=== PATIENT | female | born 2000 | race Caucasian/White ===

== ENCOUNTER 2024-05-21 06:54 | Observation (INO) | payer OTHER ==
[2024-05-21] MEDS ORDERED: HALOPERIDOL LACTATE 5 MG/ML ONE (08:26)
[2024-05-21] MEDS ORDERED: ACETAMINOPHEN INJECTION 100 ML ONE (08:26)
[2024-05-21] MEDS ORDERED: FAMOTIDINE 20 MG/50 ML IVPB 20 MG/50 ML MG IVPB ONE (08:27)
[2024-05-21] MEDS: HALOPERIDOL LACTATE 5 MG/ML IM ONE (08:31)
[2024-05-21 09:26] LABS: ALBUMIN 4.7 g/dl (3.4-5.0); BLOOD UREA NITROGEN 8.8 mg/dL (7-18); CALCIUM 9.9 mg/dL (8.5-10.1)
[2024-05-21 09:28] LABS: CREATININE 0.9 mg/dL (0.55-1.3)
[2024-05-21 09:31] LABS: BILIRUBIN,TOTAL 0.9 mg/dL (0.2-1); TOT PROT 8.2 g/dl (6.4-8.2)
[2024-05-21 09:33] LABS: MAGNESIUM 2.3 mg/dL (1.8-2.4)
[2024-05-21] MEDS: FAMOTIDINE 20 MG/50 ML IVPB 20 MG/50 ML MG IVPB ONE (09:45)
[2024-05-21] MEDS: SODIUM CHLORIDE 1,000 ML IV STA (09:45)
[2024-05-21] MEDS: ACETAMINOPHEN 1000 MG/100 ML BAG IVPB ONE (09:50)
[2024-05-21] MEDS ORDERED: ONDANSETRON 4 MG/2 ML VIAL ONE (10:56)
[2024-05-21] MEDS: ONDANSETRON 4 MG/2 ML VIAL IVPUSH ONE (10:58)
[2024-05-21] MEDS ORDERED: LORazepam 2 MG/ML SDV VIAL ONE (11:21)
[2024-05-21 12:09] LABS: BASO % 0.3 % (0-2.0); HEMATOCRIT 34.2 % (32.4-45.2); HEMOGLOBIN 11.2 GM/dL (10.7-15.3); LYMPH % 8.5 % (8-40); MCH 23.1 pg (25.7-33.7); MCHC 32.9 g/dl (32.0-36.0); MEAN CELL VOLUME 70.2 fl (80-96); MEAN PLT VOLUME 7.4 fl (7.5-11.1); MONO % 4.7 % (3.8-10.2); NEUT % 86.5 % (42.8-82.8); PLATELET COUNT 280 10^3/uL (134-434); RBC 4.87 M/mm3 (3.60-5.2); RDW 16.7 % (11.6-15.6); WHITE BLOOD COUNT 6.7 K/mm3 (4.0-10.0)
[2024-05-21] MEDS ORDERED: PANTOPRAZOLE SODIUM 40 MG VIAL ONE (12:15)
[2024-05-21] MEDS: PANTOPRAZOLE SODIUM 40 MG VIAL IVPUSH SCH (12:20)
[2024-05-21 13:41] VITALS: BMI 29.0
[2024-05-21 15:43] LABS: METHADONE, UR NEGATIVE (NEGATIVE); OPIATES, URI NEGATIVE (NEGATIVE); PHENCYCLIDINE,URINE NEGATIVE (NEGATIVE); URINE BARBITURATES NEGATIVE (NEGATIVE); URINE BENZODIAZEPINES NEGATIVE (NEGATIVE)
[2024-05-21 15:45] LABS: COCAINE, UR NEGATIVE (NEGATIVE); URINE AMPHETAMINES NEGATIVE (NEGATIVE)
[2024-05-21] MEDS: LORazepam 2 MG/ML SDV VIAL IVPUSH ONE (17:00)
[2024-05-21] MEDS: DICYCLOMINE HCL 10 MG CAPSULE PO SCH (17:01)
[2024-05-22] MEDS: SODIUM CHLORIDE 1,000 ML IV SCH (06:32)
[2024-05-22] MEDS: METOCLOPRAMIDE HCL INJECTION 10 MG/2 ML VIAL IVPUSH PRN (07:55)
[2024-05-22] MEDS ORDERED: BACLOFEN 10 MG TABLET (FP) PO PRN (08:58)
[2024-05-22 09:19] VITALS: RESP 18
[2024-05-22 09:44] LABS: HEMATOCRIT 35.8 % (32.4-45.2); HEMOGLOBIN 11.5 GM/dL (10.7-15.3); MCH 22.6 pg (25.7-33.7); MCHC 32.1 g/dl (32.0-36.0); MEAN CELL VOLUME 70.5 fl (80-96); MEAN PLT VOLUME 7.7 fl (7.5-11.1); PLATELET COUNT 346 10^3/uL (134-434); RBC 5.08 M/mm3 (3.60-5.2); RDW 16.5 % (11.6-15.6); WHITE BLOOD COUNT 5.1 K/mm3 (4.0-10.0)
[2024-05-22 10:03] LABS: POTASSIUM 3.4 mmol/L (3.5-5.1)
[2024-05-22 10:04] LABS: ALBUMIN 4.3 g/dl (3.4-5.0); BLOOD UREA NITROGEN 3.6 mg/dL (7-18); CALCIUM 9.4 mg/dL (8.5-10.1); MAGNESIUM 2.2 mg/dL (1.8-2.4)
[2024-05-22 10:08] LABS: CREATININE 0.8 mg/dL (0.55-1.3)
[2024-05-22 10:10] LABS: BILIRUBIN,TOTAL 0.6 mg/dL (0.2-1); TOT PROT 7.6 g/dl (6.4-8.2)
[2024-05-22] MEDS: POTASSIUM CHLORIDE ORAL LIQUID 20 MEQ/15 ML PO ONE (11:42)
[2024-05-22] MEDS: ENOXAPARIN NA (PORCINE) 40 MG/0.4 ML DISP.SYRIN SQ SCH (11:43)
[2024-05-22] MEDS: PYRIDOSTIGMINE BROMIDE 60 MG TABLET PO SCH (11:43)
[2024-05-23] MEDS: ONDANSETRON 4 MG/2 ML VIAL IVPUSH ONE (04:10)
[2024-05-23 09:04] LABS: HEMATOCRIT 35.7 % (32.4-45.2); HEMOGLOBIN 11.3 GM/dL (10.7-15.3); MCH 22.6 pg (25.7-33.7); MCHC 31.8 g/dl (32.0-36.0); MEAN CELL VOLUME 71.1 fl (80-96); MEAN PLT VOLUME 7.4 fl (7.5-11.1); PLATELET COUNT 315 10^3/uL (134-434); RBC 5.02 M/mm3 (3.60-5.2); RDW 16.5 % (11.6-15.6); WHITE BLOOD COUNT 5.3 K/mm3 (4.0-10.0)
[2024-05-23 09:15] LABS: POTASSIUM 3.7 mmol/L (3.5-5.1)
[2024-05-23 09:31] LABS: BLOOD UREA NITROGEN 7.3 mg/dL (7-18)
[2024-05-23 09:32] LABS: CALCIUM 9.4 mg/dL (8.5-10.1); MAGNESIUM 2.2 mg/dL (1.8-2.4)
[2024-05-23 09:33] LABS: ALBUMIN 4.2 g/dl (3.4-5.0)
[2024-05-23 09:36] LABS: CREATININE 0.7 mg/dL (0.55-1.3); PHOSPHOROUS 3.2 mg/dL (2.5-4.9)
[2024-05-23 09:37] LABS: BILIRUBIN,TOTAL 0.5 mg/dL (0.2-1); TOT PROT 7.2 g/dl (6.4-8.2)
[2024-05-23 12:24] VITALS: BP 129/82; PULSE 60; TEMP 98.2
[2024-05-23] MEDS: FLUoxetine HCL 20 MG CAPSULE PO SCH (12:47)
== END 2024-05-23 14:30 | disposition home or self-care (01) ==
LOC: JER 06:54 → JERBED 10:42 → J6S 12:56
PROVIDERS: ADMIT Internal Medicine; ATTEND Internal Medicine
PROC: 3E033NZ Introduction of Analgesics, Hypnotics, Sedatives into Peripheral Vein, Percutaneous Approach (ICD-10-PCS; principal; 2024-05-21)
DX: F12.188 Cannabis abuse with other cannabis-induced disorder (principal); E87.6 Hypokalemia; G70.00 Myasthenia gravis without (acute) exacerbation; F41.9 Anxiety disorder, unspecified
CPT/HCPCS: 36415; 76705-TC; 80053; 80307; 83605; 83690; 83735; 84100; 84703; 85025; 85027; 93005; 93010; 96375; 96376; 99285-25; G0378; J0131

== ENCOUNTER 2024-09-03 09:17 | Emergency (ER) | payer OTHER ==
[2024-09-03 09:35] VITALS: BP 127/67; PULSE 91; RESP 18; TEMP 98.5; BMI 32.3
[2024-09-03] MEDS ORDERED: FAMOTIDINE 20 MG/50 ML IVPB 20 MG/50 ML MG IVPB ONE (09:49)
[2024-09-03] MEDS ORDERED: ONDANSETRON 4 MG/2 ML VIAL ONE (09:49)
[2024-09-03] MEDS: ONDANSETRON 4 MG/2 ML VIAL IVPB ONE (10:10)
[2024-09-03] MEDS: FAMOTIDINE 20 MG/50 ML IVPB 20 MG/50 ML MG IVPB ONE (10:15)
[2024-09-03 10:16] LABS: ABSOLUTE IMMATURE GRANULOCYTES 0.03 x10^3/uL (0.0-0.031); BASOPHILS # 0.02 x10^3/uL (0.01-0.08); HEMATOCRIT 35.9 % (34.1-44.9); HEMOGLOBIN 11.5 g/dL (11.2-15.7); MEAN CELL VOLUME 71.5 fl (79.4-94.8); MEAN PLT VOLUME 9.8 fl (9.4-12.3); MONOCYTE # 0.75 x10^3/uL (0.24-0.86); MONOCYTE % 10.3 % (4.7-12.5); PLATELET COUNT 359 x10^3/uL (182-369); RDW 17.3 % (12.1-16.5)
[2024-09-03 10:20] LABS: EPI CELLS >36 /uL (0-25.1); HYALINE CASTS 2 /uL (0-3.1); URINE APPEARANCE CLOUDY; URINE BACTERIA 1092 /uL (0-1359); URINE BILIRUBIN NEGATIVE (NEGATIVE); URINE COLOR ORANGE; URINE GLUCOSE (UA) NEGATIVE (NEGATIVE); URINE KETONE TRACE (NEGATIVE); URINE LEUK ESTERASE 1+ (NEGATIVE); URINE NITRITE NEGATIVE (NEGATIVE); URINE PROTEIN 2+ (NEGATIVE); URINE RBC 7319 /uL (0-23.9); URINE UROBILINOGEN 0.2 mg/dL (0.2-1.0); URINE WBC 358 /uL (0-25.8)
[2024-09-03 10:44] LABS: POTASSIUM 3.2 mmol/L (3.5-5.1)
[2024-09-03] MEDS ORDERED: ACETAMINOPHEN INJECTION 100 ML ONE ×2 (10:44→10:48)
[2024-09-03 10:46] LABS: CALCIUM 10.3 mg/dL (8.5-10.1)
[2024-09-03 10:47] LABS: ALBUMIN 4.8 g/dl (3.4-5.0); BLOOD UREA NITROGEN 16.4 mg/dL (7-18); MAGNESIUM 2.4 mg/dL (1.8-2.4)
[2024-09-03 10:50] LABS: CREATININE 0.9 mg/dL (0.55-1.3)
[2024-09-03] MEDS: SODIUM CHLORIDE 0.9% 500 ML INFUS.BAG IV ONE (10:50)
[2024-09-03] MEDS: ACETAMINOPHEN 1000 MG/100 ML BAG IVPB ONE (10:50)
[2024-09-03 10:51] LABS: BILIRUBIN,TOTAL 0.8 mg/dL (0.2-1); TOT PROT 7.8 g/dl (6.4-8.2)
[2024-09-03 11:04] LABS: PHOSPHOROUS 1.8 mg/dL (2.5-4.9)
[2024-09-03] MEDS ORDERED: HALOPERIDOL LACTATE 5 MG/ML ONE (11:35)
[2024-09-03] MEDS: HALOPERIDOL LACTATE 5 MG/ML IVPUSH ONE (11:37)
[2024-09-03] MEDS ORDERED: BACLOFEN 10 MG TABLET (FP) ONE (13:41)
[2024-09-03] MEDS ORDERED: POTASSIUM CHLORIDE TABS 20 MEQ TABLET.ER (FP) PO ONE (13:41)
[2024-09-03] MEDS ORDERED: NAPH,MB-DB/K PH,MBDB POWDER PACKET ONE (13:41)
[2024-09-03] MEDS: BACLOFEN 10 MG TABLET (FP) PO ONE (13:49)
[2024-09-03] MEDS: NAPH,MB-DB/K PH,MBDB POWDER PACKET PO ONE (13:49)
[2024-09-03] MEDS: POTASSIUM CHLORIDE TABS 20 MEQ TABLET.ER (FP) PO ONE (13:49)
[2024-09-03 14:51] LABS: EPI CELLS 16 /uL (0-25.1); HYALINE CASTS 0 /uL (0-3.1); PH,URINE 7.5 (5.0-8.0); URINE APPEARANCE CLEAR; URINE BACTERIA 20 /uL (0-1359); URINE BILIRUBIN NEGATIVE (NEGATIVE); URINE COLOR YELLOW; URINE GLUCOSE (UA) NEGATIVE (NEGATIVE); URINE KETONE 3+ (NEGATIVE); URINE LEUK ESTERASE NEGATIVE (NEGATIVE); URINE NITRITE NEGATIVE (NEGATIVE); URINE PROTEIN 2+ (NEGATIVE); URINE RBC 33 /uL (0-23.9); URINE UROBILINOGEN 0.2 mg/dL (0.2-1.0); URINE WBC 10 /uL (0-25.8)
== END 2024-09-03 13:45 | disposition home or self-care (01) ==
LOC: JER 09:17
PROC: 3E033GC Introduction of Other Therapeutic Substance into Peripheral Vein, Percutaneous Approach (ICD-10-PCS; principal; 2024-09-03)
PROC: 3E033GC Introduction of Other Therapeutic Substance into Peripheral Vein, Percutaneous Approach (ICD-10-PCS; 2024-09-03)
PROC: 3E033NZ Introduction of Analgesics, Hypnotics, Sedatives into Peripheral Vein, Percutaneous Approach (ICD-10-PCS; 2024-09-03)
PROC: 3E033GC Introduction of Other Therapeutic Substance into Peripheral Vein, Percutaneous Approach (ICD-10-PCS; 2024-09-03)
DX: F12.988 Cannabis use, unspecified with other cannabis-induced disorder (principal); R11.14 Bilious vomiting; R53.83 Other fatigue; E86.0 Dehydration; R10.13 Epigastric pain
CPT/HCPCS: 36415; 80053; 81003; 83690; 83735; 84100; 84703; 85025; 87077; 87086; 93005; 93010; 99284-25; J0475

== ENCOUNTER 2024-10-06 09:14 | Observation (INO) | payer OTHER ==
[2024-10-06] MEDS ORDERED: ACETAMINOPHEN INJECTION 100 ML ONE (09:43)
[2024-10-06] MEDS ORDERED: ONDANSETRON 4 MG/2 ML VIAL ONE (09:43)
[2024-10-06] MEDS: ONDANSETRON 4 MG/2 ML VIAL IVPB ONE (09:55)
[2024-10-06] MEDS: ACETAMINOPHEN 1000 MG/100 ML BAG IVPB ONE (10:00)
[2024-10-06] MEDS: SODIUM CHLORIDE 0.9% 500 ML INFUS.BAG IV ONE (10:00)
[2024-10-06 10:13] LABS: ABSOLUTE IMMATURE GRANULOCYTES 0.03 x10^3/uL (0.0-0.031); BASOPHILS # 0.02 x10^3/uL (0.01-0.08); EOSINOPHIL % 0.0 % (0.7-5.8); EOSINOPHILS # 0.00 x10^3/uL (0.04-0.36); MCHC 32.1 g/dl (32.2-35.5); MEAN CELL VOLUME 72.7 fl (79.4-94.8); MEAN PLT VOLUME 9.7 fl (9.4-12.3); MONOCYTE # 0.47 x10^3/uL (0.24-0.86); MONOCYTE % 5.3 % (4.7-12.5); RDW 16.4 % (12.1-16.5)
[2024-10-06] MEDS ORDERED: HALOPERIDOL LACTATE 5 MG/ML ONE (10:26)
[2024-10-06] MEDS: HALOPERIDOL LACTATE 5 MG/ML IM ONE (10:30)
[2024-10-06 10:31] LABS: CO2 18 mmol/L (21-32); GLUCOSE,RANDOM 122 mg/dL (74-106)
[2024-10-06 10:35] LABS: CREATININE 0.8 mg/dL (0.55-1.3); SGPT/ALT 20 U/L (13-61); TOT PROT 7.5 g/dl (6.4-8.2)
[2024-10-06 10:37] LABS: ALK PHOS 41 U/L (45-117)
[2024-10-06 10:44] LABS: SGOT/AST 19 U/L (15-37)
[2024-10-06] MEDS: NAPH,MB-DB/K PH,MBDB POWDER PACKET PO ONE (11:15)
[2024-10-06] MEDS ORDERED: METOCLOPRAMIDE HCL INJECTION 10 MG/2 ML VIAL ONE (11:25)
[2024-10-06 11:27] LABS: HCV DIAGNOSTIC IN-HOUSE W/RFLX NON-REACTIVE (NONREACTIVE)
[2024-10-06 11:29] LABS: HIV INTERPRETATION NEGATIVE (NEGATIVE)
[2024-10-06] MEDS: METOCLOPRAMIDE HCL INJECTION 10 MG/2 ML VIAL IVPB ONE (11:35)
[2024-10-06] MEDS ORDERED: HALOPERIDOL LACTATE 5 MG/ML IM PRN (12:58)
[2024-10-06] MEDS: SODIUM PHOSPHATE - 15 MM in DEXTROSE 5%-WATER - 250 ML IVPB ONE (12:58)
[2024-10-06] MEDS ORDERED: DICYCLOMINE HCL 10 MG CAPSULE ONE (14:03)
[2024-10-06] MEDS: DICYCLOMINE HCL 10 MG CAPSULE PO SCH (14:08)
[2024-10-06] MEDS: PYRIDOSTIGMINE BROMIDE 60 MG TABLET PO SCH ×2 (14:30→21:50)
[2024-10-06 16:23] VITALS: BMI 31.5
[2024-10-06] MEDS: DEXTROSE 5%-NORMAL SALINE 1,000 ML IV SCH (18:44)
[2024-10-07] MEDS: PYRIDOSTIGMINE BROMIDE 60 MG TABLET PO SCH (07:20)
[2024-10-07] MEDS: BACLOFEN 10 MG TABLET (FP) PO PRN (07:40)
[2024-10-07 08:38] LABS: MCHC 30.9 g/dl (32.2-35.5); MEAN CELL VOLUME 75.2 fl (79.4-94.8); MEAN PLT VOLUME 10.2 fl (9.4-12.3); RDW 16.6 % (12.1-16.5)
[2024-10-07 09:25] LABS: CREATININE 0.7 mg/dL (0.55-1.3)
[2024-10-07 09:27] LABS: ALK PHOS 42.0 U/L (45-117); CO2 24.0 mmol/L (21-32); GLUCOSE,RANDOM 98.0 mg/dL (74-106); TOT PROT 6.9 g/dl (6.4-8.2)
[2024-10-07 09:30] LABS: SGOT/AST 16.0 U/L (15-37); SGPT/ALT 20.0 U/L (13-61)
[2024-10-07] MEDS: ENOXAPARIN NA (PORCINE) 40 MG/0.4 ML DISP.SYRIN SQ SCH (10:03)
[2024-10-07 10:08] VITALS: BP 138/83; PULSE 90; RESP 20; TEMP 98
[2024-10-07] MEDS: POTASSIUM CHLORIDE TABS 20 MEQ TABLET.ER (FP) PO ONE (10:14)
[2024-10-07] MEDS: POTASSIUM CHLORIDE ORAL LIQUID 20 MEQ/15 ML PO ONE (10:15)
== END 2024-10-07 11:43 | disposition home or self-care (01) ==
LOC: JER 09:14 → JERBED 11:26 → J8W 15:53
PROVIDERS: ADMIT Student in an Organized Health Care Education/Training Program; ATTEND Nurse Practitioner Family
PROC: 3E033NZ Introduction of Analgesics, Hypnotics, Sedatives into Peripheral Vein, Percutaneous Approach (ICD-10-PCS; principal; 2024-10-06)
PROC: 3E023GC Introduction of Other Therapeutic Substance into Muscle, Percutaneous Approach (ICD-10-PCS; 2024-10-06)
PROC: 3E023NZ Introduction of Analgesics, Hypnotics, Sedatives into Muscle, Percutaneous Approach (ICD-10-PCS; 2024-10-06)
PROC: 3E033GC Introduction of Other Therapeutic Substance into Peripheral Vein, Percutaneous Approach (ICD-10-PCS; 2024-10-06)
PROC: 3E0337Z Introduction of Electrolytic and Water Balance Substance into Peripheral Vein, Percutaneous Approach (ICD-10-PCS; 2024-10-06)
DX: E83.39 Other disorders of phosphorus metabolism (principal); F12.90 Cannabis use, unspecified, uncomplicated; R11.10 Vomiting, unspecified; G70.00 Myasthenia gravis without (acute) exacerbation; L40.9 Psoriasis, unspecified; Z88.8 Allergy status to other drugs, medicaments and biological substances
CPT/HCPCS: 36415; 80053; 82962; 83690; 83735; 84100; 84703; 85025; 86803; 87389; 93005; 93010; 96365; 96367; 96372; 96375; 99285-25; G0378; J0475

== ENCOUNTER 2024-10-08 00:44 | Observation (INO) | payer OTHER ==
[2024-10-08 00:47] VITALS: BMI 30.7
[2024-10-08] MEDS ORDERED: TRIMETHOBENZAMIDE HCL 200MG/2ML INJ IM ONE (00:57)
[2024-10-08] MEDS: TRIMETHOBENZAMIDE HCL 200MG/2ML INJ IM ONE (00:58)
[2024-10-08] MEDS ORDERED: HALOPERIDOL LACTATE 5 MG/ML ONE (02:10)
[2024-10-08] MEDS: HALOPERIDOL LACTATE 5 MG/ML IM ONE (02:11)
[2024-10-08 02:27] LABS: ABSOLUTE IMMATURE GRANULOCYTES 0.02 x10^3/uL (0.0-0.031); BASOPHILS # 0.01 x10^3/uL (0.01-0.08); EOSINOPHIL % 0.0 % (0.7-5.8); EOSINOPHILS # 0.00 x10^3/uL (0.04-0.36); MCHC 31.4 g/dl (32.2-35.5); MEAN CELL VOLUME 73.6 fl (79.4-94.8); MEAN PLT VOLUME 9.7 fl (9.4-12.3); MONOCYTE # 0.34 x10^3/uL (0.24-0.86); MONOCYTE % 4.9 % (4.7-12.5); RDW 16.2 % (12.1-16.5)
[2024-10-08 02:45] LABS: CO2 21.0 mmol/L (21-32); GLUCOSE,RANDOM 114.0 mg/dL (74-106)
[2024-10-08 02:48] LABS: CREATININE 0.8 mg/dL (0.55-1.3); SGOT/AST 16.0 U/L (15-37); SGPT/ALT 20.0 U/L (13-61)
[2024-10-08 02:49] LABS: TOT PROT 7.6 g/dl (6.4-8.2)
[2024-10-08 02:51] LABS: ALK PHOS 45.0 U/L (45-117)
[2024-10-08 03:36] LABS: HIV INTERPRETATION NEGATIVE (NEGATIVE)
[2024-10-08 03:37] LABS: HCV DIAGNOSTIC IN-HOUSE W/RFLX NON-REACTIVE (NONREACTIVE)
[2024-10-08] MEDS ORDERED: FAMOTIDINE 20 MG/50 ML IVPB 20 MG/50 ML MG IVPB ONE (06:44)
[2024-10-08] MEDS ORDERED: ACETAMINOPHEN INJECTION 100 ML ONE (06:44)
[2024-10-08] MEDS: ACETAMINOPHEN 1000 MG/100 ML BAG IVPB ONE (06:55)
[2024-10-08] MEDS: FAMOTIDINE 20 MG/50 ML IVPB 20 MG/50 ML MG IVPB ONE (07:06)
[2024-10-08] MEDS ORDERED: POTASSIUM CHLORIDE ORAL LIQUID 20 MEQ/15 ML ONE (08:16)
[2024-10-08] MEDS ORDERED: POTASSIUM CHLORIDE TABS 20 MEQ TABLET.ER (FP) PO ONE (08:21)
[2024-10-08] MEDS ORDERED: METOCLOPRAMIDE HCL INJECTION 10 MG/2 ML VIAL IVPUSH PRN (08:28)
[2024-10-08] MEDS: POTASSIUM CHLORIDE TABS 20 MEQ TABLET.ER (FP) PO ONE (08:39)
[2024-10-08] MEDS ORDERED: HALOPERIDOL LACTATE 5 MG/ML IM PRN (08:48)
[2024-10-08] MEDS ORDERED: PYRIDOSTIGMINE BROMIDE 60 MG TABLET PO SCH (09:30)
[2024-10-08] MEDS: POTASSIUM CHLORIDE ORAL LIQUID 20 MEQ/15 ML PO ONE (13:12)
[2024-10-08] MEDS ORDERED: ENOXAPARIN NA (PORCINE) 40 MG/0.4 ML DISP.SYRIN SQ ONE (13:29)
[2024-10-08] MEDS: PYRIDOSTIGMINE BROMIDE 60 MG TABLET PO SCH (13:34)
[2024-10-08] MEDS: ENOXAPARIN NA (PORCINE) 40 MG/0.4 ML DISP.SYRIN SQ SCH (13:36)
[2024-10-08 13:42] VITALS: BP 118/75; PULSE 108; RESP 20; TEMP 97.3
[2024-10-08] MEDS ORDERED: DICYCLOMINE HCL 10 MG CAPSULE PO SCH (14:00)
[2024-10-08] MEDS ORDERED: DICYCLOMINE HCL 10 MG CAPSULE ONE (14:35)
== END 2024-10-08 14:00 | disposition home or self-care (01) ==
LOC: JER 00:44 → JERBED 06:31
PROVIDERS: ADMIT Internal Medicine; ATTEND Internal Medicine
PROC: 3E033NZ Introduction of Analgesics, Hypnotics, Sedatives into Peripheral Vein, Percutaneous Approach (ICD-10-PCS; principal; 2024-10-08)
PROC: 3E033GC Introduction of Other Therapeutic Substance into Peripheral Vein, Percutaneous Approach (ICD-10-PCS; 2024-10-08)
PROC: 3E023GC Introduction of Other Therapeutic Substance into Muscle, Percutaneous Approach (ICD-10-PCS; 2024-10-08)
DX: R11.10 Vomiting, unspecified (principal); G70.00 Myasthenia gravis without (acute) exacerbation; F41.8 Other specified anxiety disorders; L30.9 Dermatitis, unspecified; F12.90 Cannabis use, unspecified, uncomplicated; Z88.8 Allergy status to other drugs, medicaments and biological substances
CPT/HCPCS: 36415; 76705-TC; 80053; 83735; 84703; 85025; 86803; 87389; 93005; 93010; 96365; 96372; 96375; 99285-25; G0378